=== PATIENT | female | born 1985 | race Caucasian/White ===

== ENCOUNTER → 2016-08-10 | Outpatient (CLI) | payer MEDICAID ==
[~2016-08-10] MED LIST: FEOSOL325 MG PO; MOTRIN800 MG PO; PERCOCET 5-3251 EACH PO; PRENATAL 1+1)(P1 TAB PO; ZANTAC (NON-FO150 MG PO
[2016-08-10 12:35] LABS: BASOPHIL % 0.3 %; EOSINOPHIL # 0.1 K/uL (0.0-0.5); EOSINOPHIL % 0.7 %; HEMATOCRIT 31.4 % (33.0-46.0); HEMOGLOBIN 9.1 g/dL (11.0-15.0); IMMATURE GRANULOCYTE % 0.4 %; LYMPHOCYTE # 2.3 K/uL (0.8-4.0); LYMPHOCYTE % 20.2 %; MCH 21.6 pg (27.0-34.0); MCV 74.4 fl (83.0-98.0); MONOCYTE # 0.9 K/uL (0.0-1.0); MONOCYTE % 7.6 %; MPV 9.4 fl (9.4-12.4); NEUTROPHIL # (ANC) 7.9 K/uL (1.8-7.8); NEUTROPHIL % 70.8 %; NRBC % 0 /100WBC (0-0.00); PLATELET COUNT 362 K/uL (150-450); RBC 4.22 M/uL (3.50-5.50); WBC 11.2 K/uL (4.0-11.0)
[2016-08-10 12:50] LABS: ALBUMIN 2.9 gm/dL (3.5-5.0); ALK PHOS 90 IU/L (33-138); ALT 17 IU/L (12-78); ANION GAP 14.4 (10.0-19.0); AST 16 IU/L (10-40); BLOOD UREA NITROGEN 10 mg/dL (6-24); CALCIUM 8.6 mg/dL (8.5-10.5); CHLORIDE 106 mMol/L (96-110); CO2 23 mMol/L (22-32); CREATININE 0.5 mg/dL (0.5-1.1); ESTIMATED GFR (MDRD EQUATION) > 60; POTASSIUM 4.4 mMol/L (3.7-5.1); SODIUM 139 mMol/L (135-145); TOTAL BILIRUBIN 0.5 mg/dL (0.0-1.5); TOTAL PROTEIN 6.8 g/dL (6.0-8.4)
== END | disposition disaster alternative care site (69) ==
LOC: LCOBG 12:25
PROVIDERS: Obstetrics & Gynecology
DX: O13.2 Gestational [pregnancy-induced] hypertension without significant proteinuria, second trimester (principal)

== ENCOUNTER → 2016-08-14 | Outpatient (CLI) | payer MEDICAID | END | disposition disaster alternative care site (69) | LOC: LCOBG 17:36 | DX: O12.13 Gestational proteinuria, third trimester (principal) ==

== ENCOUNTER 2016-08-24 10:34 | Observation (INO) | payer MEDICAID ==
[~2016-08-24] VITALS: Ht 175.3 cm; Wt 90.5 kg
--- NOTE | ~2016-08-24 | HP ---
PATIENT'S NAME: JOSE A FLEMING [facility] AGE: 31 Y [address] ROOM: [place] [address] LOCATION: GO ADMIT DATE: 08/24/2016 History & Physical DISCHARGE DATE: FAMILY PHYSICIAN: Shree Hudson MD ATTENDING PHYSICIAN: Caro Luis DATE OF SERVICE: CHIEF COMPLAINT: Gestational hypertension. HISTORY OF PRESENT ILLNESS: This patient is a 31-year-old, 8, para 4, 3-0-0-7 female at 33 weeks and 4 days gestation by first trimester ultrasound. She has a history of gestational hypertension in several of her prior pregnancies. She was seen in my office last week with elevated blood pressures, not in a severe range. Laboratory data was obtained and was normal other than her urine protein-to- creatinine ratio of 0.3, 24-hour urine was only 218, however. She was asymptomatic. She was sent home on modified bed rest and blood pressures at that time were running in the 130s/70s to 140s/90s. She presented to the office today with blood pressures in the 150s/100s and headache. Now, she says her headache is better. She has had a section x7. She, as I mentioned, has complaints of occasional headache, but no changes in vision. She has had good movement and rare contractions. She has had no leakage of fluid. No right upper quadrant pain. No nausea or vomiting. PAST MEDICAL HISTORY: Gestational hypertension and chronic anemia. PAST SURGICAL HISTORY: section x7. GAS CONTROLLER HISTORY: G8, P4 3-0-0-7. 7 prior sections, 3 of them . She is blood type A positive, antibody screen negative, RPR negative, rubella immune, hepatitis B serum antigen negative, anatomy scan was normal. Primary scan was normal. Pap smears were normal. GC chlamydia negative. MEDICATIONS: vitamins. ALLERGIES: PENICILLIN. FAMILY HISTORY: PATIENT'S NAME: JOSE A FLEMING [facility] AGE: 31 Y [address] ROOM: [place] [address] LOCATION: GO ADMIT DATE: 08/24/2016 History & Physical DISCHARGE DATE: FAMILY PHYSICIAN: Shree Hudson MD ATTENDING PHYSICIAN: Caro Luis Noncontributory. SOCIAL HISTORY: No alcohol, tobacco, or drugs. She is . She stays at home with her children. PHYSICAL EXAMINATION: VITAL SIGNS: BP is 120s/70s at rest 140s/90s with activity here in the hospital. She is afebrile. GENERAL: She is alert and oriented. HEART: Regular rate and rhythm. LUNGS: Clear to auscultation bilaterally. ABDOMEN: Gravid. Soft, nontender, and nondistended. EXTREMITIES: 1+ edema, trace. No clubbing or cyanosis. 2+ DTRs. DIAGNOSTIC DATA: Ultrasound: Estimated weight 2525 g on ultrasound. Cephalic active fetus with a normal deep venous pocket noted in the office. [place] shows rare contractions and heart rate 130, moderate variability with accelerations. LABORATORY DATA: Creatinine 0.5, AST 16, ALT 17. Urine pzpvnrc-bd-bblaakkyvm ratio 0.3. White blood cells 13.5, hemoglobin 8.8, hematocrit 29.8, and platelets 305. ASSESSMENT: 1. Intrauterine at 33 weeks and 4 days. 2. Gestational hypertension, rule out preeclampsia. 3. Prior section x7. 4. Chronic anemia. PLAN: 1. Admit the patient for hospitalized bedrest. 2. Continue close blood pressure monitoring. 3. Celestone administration. We will re-evaluate her blood pressures at this time given that her labs are normal. I do not think she needs delivered at this point unless her blood pressures are in the severe range. Again, the urine for tiofjri-df-ensldyazto ratio is right on it at 0.3, but her 24-hour urine was normal last week and she has 1+ protein today. So at this time, I feel that we can watch her blood pressures for longer and see how she does. If she develops symptoms, higher blood pressures, or laboratory abnormalities, then she is going to be delivered via section. PATIENT'S NAME: JOSE A FLEMING [facility] AGE: 31 Y [address] ROOM: [address] [address] LOCATION: [facility] ADMIT DATE: 08/24/2016 History & Physical DISCHARGE DATE: FAMILY PHYSICIAN: Shree Hudson MD ATTENDING PHYSICIAN: Caro Luis MD NEW HIGHTOWER/modl /[id number] D: [id number] T: [id number] HISTORY & PHYSICAL
[2016-08-24 11:16] LABS: BASOPHIL % 0.1 %; EOSINOPHIL % 0.3 %; HEMATOCRIT 29.8 % (33.0-46.0); HEMOGLOBIN 8.8 g/dL (11.0-15.0); IMMATURE GRANULOCYTE # 0.1 K/uL (0.0-0.3); IMMATURE GRANULOCYTE % 0.5 %; LYMPHOCYTE # 1.9 K/uL (0.8-4.0); LYMPHOCYTE % 13.9 %; MCH 21.3 pg (27.0-34.0); MCHC 29.5 gm/dL (32.0-36.5); MCV 72.2 fl (83.0-98.0); MONOCYTE # 0.8 K/uL (0.0-1.0); MONOCYTE % 5.7 %; MPV 9.4 fl (9.4-12.4); NEUTROPHIL # (ANC) 10.7 K/uL (1.8-7.8); NEUTROPHIL % 79.5 %; NRBC % 0 /100WBC (0-0.00); PLATELET COUNT 305 K/uL (150-450); RBC 4.13 M/uL (3.50-5.50); RDW-CV 15.2 % (11.9-14.6); WBC 13.5 K/uL (4.0-11.0)
[2016-08-24] MEDS ORDERED: PRENATAL 1+1)(P1 TAB PO (11:25)
[2016-08-24] MEDS ORDERED: ZANTAC (NON-FO150 MG PO (11:26)
[2016-08-24 11:34] LABS: ALBUMIN 2.6 gm/dL (3.5-5.0); ALK PHOS 95 IU/L (33-138); ALT 17 IU/L (12-78); AST 16 IU/L (10-40); BLOOD UREA NITROGEN 11 mg/dL (6-24); CALCIUM 8.4 mg/dL (8.5-10.5); CHLORIDE 107 mMol/L (96-110); CO2 20 mMol/L (22-32); CREATININE 0.5 mg/dL (0.5-1.1); ESTIMATED GFR (MDRD EQUATION) > 60; SODIUM 138 mMol/L (135-145); TOTAL BILIRUBIN 0.6 mg/dL (0.0-1.5); TOTAL PROTEIN 6.8 g/dL (6.0-8.4)
== END 2016-08-25 13:35 | disposition disaster alternative care site (69) ==
LOC: GOBS 10:34
PROVIDERS: ADMIT Obstetrics & Gynecology
DX: O13.3 Gestational [pregnancy-induced] hypertension without significant proteinuria, third trimester (principal); O34.219 Maternal care for unspecified type scar from previous cesarean delivery; Z3A.33 33 weeks gestation of pregnancy; D64.9 Anemia, unspecified; Z88.0 Allergy status to penicillin; Z79.899 Other long term (current) drug therapy
CPT/HCPCS: G0463; J0702; J7120

== ENCOUNTER → 2016-09-12 | Outpatient (CLI) | payer MEDICAID ==
[2016-09-12 12:51] LABS: HEMATOCRIT 29.6 % (33.0-46.0); HEMOGLOBIN 8.5 g/dL (11.0-15.0); MCH 20.7 pg (27.0-34.0); MCHC 28.7 gm/dL (32.0-36.5); MCV 72.2 fl (83.0-98.0); PLATELET COUNT 303 K/uL (150-450); RDW-CV 16.7 % (11.9-14.6); WBC 10.9 K/uL (4.0-11.0)
[2016-09-12 13:03] LABS: ALBUMIN 2.6 gm/dL (3.5-5.0); ALK PHOS 123 IU/L (33-138); ALT 19 IU/L (12-78); ANION GAP 14.1 (10.0-19.0); AST 17 IU/L (10-40); BLOOD UREA NITROGEN 13 mg/dL (6-24); CALCIUM 8.1 mg/dL (8.5-10.5); CHLORIDE 107 mMol/L (96-110); CO2 22 mMol/L (22-32); CREATININE 0.6 mg/dL (0.5-1.1); ESTIMATED GFR (MDRD EQUATION) > 60; POTASSIUM 4.1 mMol/L (3.7-5.1); TOTAL BILIRUBIN 0.8 mg/dL (0.0-1.5); TOTAL PROTEIN 6.1 g/dL (6.0-8.4)
[2016-09-12 13:06] LABS: SODIUM 139 mMol/L (135-145)
[2016-09-12 13:19] LABS: ABSOLUTE NEUTROPHIL CT (ANC) 8.9 K/uL (1.8-7.8); BANDED NEUTROPHIL # 0.4 K/uL (0.0-0.1); BANDED NEUTROPHILS % 4 %; LYMPHOCYTE # 1.4 K/uL (0.8-4.0); LYMPHOCYTE % 13 %; MONOCYTE # 0.5 K/uL (0.0-1.0); SEGMENTED NEUTROPHIL # 8.5 K/uL (1.8-7.8); SEGMENTED NEUTROPHIL % 78 %
== END | disposition disaster alternative care site (69) ==
LOC: LCOBG 12:35
PROVIDERS: Obstetrics & Gynecology
DX: O13.3 Gestational [pregnancy-induced] hypertension without significant proteinuria, third trimester (principal)

== ENCOUNTER 2016-09-18 06:00 | Inpatient (IN) | payer MEDICAID ==
[~2016-09-18] VITALS: Ht 175.3 cm; Wt 80.5 kg
--- NOTE | ~2016-09-18 | OR ---
[facility] 31 Y [address] ROOM: [place] [id number] LOCATION: GOBS ADMIT DATE: 09/18/2016 OR/Procedure Report DISCHARGE DATE: FAMILY PHYSICIAN: Shree Hudson MD ATTENDING PHYSICIAN: Caro Luis SURGEON: Caro Luis MD GOLF COURSE KEEPER: Maria Esther Lovell M.D. Dr. Lovell was necessary for adequate visualization of tissues and assistance with delivery of a breech fetus. DATE OF PROCEDURE: 09/18/2016 PREOPERATIVE DIAGNOSES: 1. Intrauterine at 37 weeks. 2. Gestational hypertension. 3. Prior section x8. 4. Breech presentation. 5. Chronic anemia. POSTOPERATIVE DIAGNOSES: 1. Intrauterine at 37 weeks. 2. Gestational hypertension. 3. Prior section x8. 4. Breech presentation. 5. Chronic anemia. PROCEDURE PERFORMED: Repeat low transverse section. ANESTHESIA: Spinal. ESTIMATED BLOOD LOSS: 700 mL. FINDINGS: Male infant, score 8 and 9. Weight 8 pounds 6 ounces. Intact placenta, 3-vessel cord. Uterine window present. DRAINS: [place]. SPECIMENS: Placenta. COMPLICATIONS: None. INDICATIONS: The patient is a 31-year-old, G8, P4-3-0-7 female. She is 37 weeks gestation. She has a history of gestational hypertension. Some of her blood pressures have been getting up to the 160s over 90s. They did come back down to the 140s over 90s with rest. She has a negative preeclampsia workup. [facility] 31 Y [address] ROOM: [address] [address] LOCATION: GO ADMIT DATE: 09/18/2016 OR/Procedure Report DISCHARGE DATE: FAMILY PHYSICIAN: Shree Hudson MD ATTENDING PHYSICIAN: Caro Luis She has had 7 prior sections. She also has chronic anemia, hemoglobin was 9.1 at start of the procedure. She usually runs in the high 8's to low 9's during her entire . She has been on an iron sulfate supplementation. Prior to the procedure, the risks, benefits, and alternatives to the procedure were discussed with the patient. She understood the risk to be, but not to be limited to, bleeding, infection, damage to the bowel, bladder, ureter, and surrounding organs and desired to proceed. DESCRIPTION OF PROCEDURE: The patient was taken to the operating room. Anesthesia was found to be adequate. She was prepped and draped in dorsal supine position with leftward tilt. A Pfannenstiel skin incision was made. It was carried down to the fascia. The fascia was incised across the midline. The fascial incision was extended. The rectus muscles were . The peritoneum was entered. The bladder blade was inserted. The bladder was attempted to be taken down because it was high due to scar tissue and you could see the uterine window with the parts visible through the uterus. The uterus was incised in a low transverse fashion with the scalpel. The uterine incision was extended with vertical traction. The surgeon's hand was inserted into the uterus. The feet were brought down through the uterine incision followed by the legs and the chest, the arms were nuchal arms, and therefore they had to be brought down and swept in-front of the chest and then the head delivered with fundal pressure. The nose and mouth were bulb suctioned. The cord was clamped and cut. The infant was handed to awaiting team. Cord blood was drawn. Cord pH was drawn. The placenta delivered to manual traction. Uterus was exteriorized and cleared of clots and debris. It was repaired with 0 Vicryl in a running-locked fashion. It was returned to the abdomen. The gutters were cleared of clots and debris. The fascia was repaired with 0 Vicryl in a running fashion. Subcutaneous adipose tissue was hemostatic. The skin was closed with a 4-0 Vicryl suture. COMPLICATIONS: None. CONDITION: Mom stable in room. Infant to nursery. MD NEW HIGHTOWER/kvng /[id number] d: 09/19/16 0947 t: 04/11/17 1115, OPERATIVE SUMMARY
[~2016-09-18 06:00] MED LIST changes: -FEOSOL325 MG PO; -MOTRIN800 MG PO; -PERCOCET 5-3251 EACH PO
[2016-09-18] MEDS ORDERED: FEOSOL325 MG PO (07:56)
[2016-09-18 08:02] LABS: BASOPHIL % 0.4 %; EOSINOPHIL # 0.1 K/uL (0.0-0.5); EOSINOPHIL % 0.8 %; HEMATOCRIT 31.5 % (33.0-46.0); HEMOGLOBIN 9.1 g/dL (11.0-15.0); IMMATURE GRANULOCYTE % 0.4 %; LYMPHOCYTE % 19.5 %; MCHC 28.9 gm/dL (32.0-36.5); MCV 72.7 fl (83.0-98.0); MONOCYTE # 0.6 K/uL (0.0-1.0); MPV 9.9 fl (9.4-12.4); NEUTROPHIL # (ANC) 7.4 K/uL (1.8-7.8); NEUTROPHIL % 72.9 %; NRBC % 0 /100WBC (0-0.00); PLATELET COUNT 340 K/uL (150-450); RBC 4.33 M/uL (3.50-5.50); RDW-CV 16.9 % (11.9-14.6); WBC 10.2 K/uL (4.0-11.0)
[2016-09-18 10:07] LABS: PCO2 59 mmHg (35-45)
[2016-09-18 10:08] LABS: BICARBONATE 26.5 mmol/L (18.0-23.0); PO2 12 mmHg (80-90)
[2016-09-19 05:21] LABS: BASOPHIL % 0.2 %; EOSINOPHIL # 0.2 K/uL (0.0-0.5); EOSINOPHIL % 2.2 %; HEMATOCRIT 26.3 % (33.0-46.0); IMMATURE GRANULOCYTE # 0.1 K/uL (0.0-0.3); IMMATURE GRANULOCYTE % 0.5 %; LYMPHOCYTE # 2.1 K/uL (0.8-4.0); LYMPHOCYTE % 20.7 %; MCV 72.5 fl (83.0-98.0); MONOCYTE # 0.8 K/uL (0.0-1.0); MONOCYTE % 7.8 %; MPV 9.3 fl (9.4-12.4); NEUTROPHIL % 68.6 %; NRBC % 0 /100WBC (0-0.00); RBC 3.63 M/uL (3.50-5.50); RDW-CV 16.9 % (11.9-14.6); WBC 10.2 K/uL (4.0-11.0)
[2016-09-19 05:33] LABS: HEMOGLOBIN 7.6 g/dL (11.0-15.0); MCH 20.9 pg (27.0-34.0); MCHC 28.9 gm/dL (32.0-36.5); PLATELET COUNT 249 K/uL (150-450)
--- NOTE | 2016-09-19 12:04 | NUR ---
Student charting read.
--- NOTE | 2016-09-19 17:33 | NUR ---
Last VS: T:97.7 P:64 R: 16 BP: 123/76 Pain ratin. Last pain med: Percocet Medicated at: 1610 Effective: Yes R Lung sounds: CL, L Lung sounds: CL Fundus:, FIRM, Lochia: SM, Breasts: SOFT, Nipples: NO PROBLEM Incision: , Incision appearance: Incision closure: SS/SUT Bowel sounds: ACTIVE Passing flatus: YES Voiding well: YES Significant event: *.UP IN ROOM. NO COMPLAINTS
--- NOTE | 2016-09-20 04:48 | NUR ---
VSS. FUNDUS FIRM, EVEN 1 DOWN. SMALL FLOW. STERRI STRIPS INTACT. PASSING FLATUS. MOTRIN LAST AT 2027. LUNG SOUNDS CLEAR.
--- NOTE | 2016-09-20 10:49 | NUR ---
[id number] I supervised the [facility] PN student nurse providing patient cares.
[2016-09-20] MEDS ORDERED: PERCOCET 5-3251 EACH PO (11:30)
[2016-09-20] MEDS ORDERED: MOTRIN800 MG PO (11:30)
== END 2016-09-20 15:20 | disposition disaster alternative care site (69) | DRG 765 ==
LOC: GOBS 06:00
PROVIDERS: ADMIT Obstetrics & Gynecology
PROC: 10D00Z1 Extraction of Products of Conception, Low, Open Approach (ICD-10-PCS; principal; 2016-09-18)
DX: O13.4 Gestational [pregnancy-induced] hypertension without significant proteinuria, complicating childbirth (principal); D62 Acute posthemorrhagic anemia; O64.1XX0 Obstructed labor due to breech presentation, not applicable or unspecified; O34.211 Maternal care for low transverse scar from previous cesarean delivery; O99.03 Anemia complicating the puerperium; Z3A.37 37 weeks gestation of pregnancy; Z37.0 Single live birth
CPT/HCPCS: J0690; J1885; J7120